=== PATIENT | male | born 1955 | race Caucasian/White ===

== ENCOUNTER 2019-07-21 10:41 | Inpatient (IN) | payer OTHER ==
[~2019-07-21] VITALS: Ht 165.1 cm; Wt 70.8 kg
[~2019-07-21 10:41] MED LIST: ADULT LOW DOSE81 M1; DIOVAN320 MG PO; PNEU16DI2
[2019-07-27] MEDS ORDERED: DUI500 PO (15:08)
[2019-07-27] MEDS ORDERED: PERCOCET 5-3251 EACH PO (15:08)
[2019-07-27] MEDS ORDERED: ELIQUIS2.5 MG PO (15:08)
== END 2019-07-27 17:02 | DRG 470 ==
LOC: O/R 07-25 05:09 → SURG 07-25 05:09 → SURH 07-25 07:00 → SURG 07-25 10:52
PROVIDERS: ADMIT Orthopaedic Surgery
PROC: 0MNP0ZZ Release Left Knee Bursa and Ligament, Open Approach (ICD-10-PCS; 2019-07-25)
PROC: 0SRD0J9 Replacement of Left Knee Joint with Synthetic Substitute, Cemented, Open Approach (ICD-10-PCS; principal; 2019-07-25 07:00)
DX: M17.12 Unilateral primary osteoarthritis, left knee (principal); D62 Acute posthemorrhagic anemia; M22.12 Recurrent subluxation of patella, left knee; I10 Essential (primary) hypertension

== ENCOUNTER 2020-06-14 07:45 | Inpatient (IN) | payer OTHER ==
[~2020-06-14] VITALS: Ht 165.1 cm; Wt 80.7 kg
[~2020-06-14 07:45] MED LIST changes: +DUI500 PO; +ELIQUIS2.5 MG PO; +PERCOCET 5-3251 EACH PO
[2020-06-14] MEDS ORDERED: AVAPRO300 MG PO (10:27)
[2020-06-14] MEDS ORDERED: TENORMIN25 MG PO (10:27)
[2020-06-27] MEDS ORDERED: DUI500 PO (16:25)
[2020-06-27] MEDS ORDERED: ELIQUIS2.5 MG PO (16:25)
[2020-06-27] MEDS ORDERED: PERCOCET 5-3251 EACH PO (16:25)
== END 2020-06-27 20:51 | DRG 470 ==
LOC: SURH 06-18 07:45 → O/R 06-18 07:45 → SURH 06-18 10:15 → O/R 06-25 06:02 → SURH 06-25 07:45
PROVIDERS: ADMIT Orthopaedic Surgery; ATTEND Orthopaedic Surgery
PROC: 0MNN0ZZ Release Right Knee Bursa and Ligament, Open Approach (ICD-10-PCS; 2020-06-25)
PROC: 0SRC0J9 Replacement of Right Knee Joint with Synthetic Substitute, Cemented, Open Approach (ICD-10-PCS; principal; 2020-06-25 17:45)
DX: M17.11 Unilateral primary osteoarthritis, right knee (principal); M22.11 Recurrent subluxation of patella, right knee

== ENCOUNTER 2023-03-06 15:55 | Emergency (ER) | payer OTHER ==
[~2023-03-06] VITALS: Ht 165.1 cm; Wt 81.6 kg
[~2023-03-06 15:55] MED LIST changes: +AVAPRO300 MG PO; +TENORMIN25 MG PO
[2023-03-06] MEDS ORDERED: IRBESARTAN150 MG PO (16:10)
== END 2023-03-06 17:59 | disposition home or self-care (01) ==
LOC: ER 15:55
DX: S42.292A Other displaced fracture of upper end of left humerus, initial encounter for closed fracture (principal); W19.XXXA Unspecified fall, initial encounter; Y93.9 Activity, unspecified; Y92.9 Unspecified place or not applicable; Y99.9 Unspecified external cause status; I10 Essential (primary) hypertension